=== PATIENT | male | born 1995 | race Caucasian/White ===

== ENCOUNTER 2017-04-30 05:14 | Emergency (ER) | payer BC ==
[2017-04-30] MEDS ORDERED: Ibuprofen 800 MG TAB ONE (06:48)
[2017-04-30] MEDS ORDERED: Cyclobenzaprine 10 MG TAB ONE (06:48)
== END 2017-04-30 07:00 | disposition home or self-care (01) ==
LOC: ERS 05:14
DX: M54.5 Low back pain (principal)
CPT/HCPCS: 99283